=== PATIENT | female | born 1990 | race Caucasian/White ===

== ENCOUNTER 2018-04-24 11:29 | Emergency (ER) | payer MEDICAID ==
[2018-04-24 11:51] VITALS: O2SAT 100
[2018-04-24] MEDS ORDERED: Sodium Chloride 0.9% 1,000 ML IV ONE ×2 (12:02→12:03)
[2018-04-24] MEDS ORDERED: Sodium Chloride 0.9% 2,000 ML ONE (12:25)
[2018-04-24 12:48] LABS: BASO # 0.1 K/uL (0.0-0.2); BASO % 0.6 % (0.0-2.0); EOS # 0.1 K/uL (0.0-0.7); EOS % 0.6 % (0.0-4.0); HEMOGLOBIN 11.5 g/dL (11.0-16.0); LYMPH # 2.9 K/uL (1.0-4.3); LYMPH % 26.5 % (20.0-40.0); MEAN CELL VOLUME 78.5 fL (81.0-99.0); MEAN CORPUSCULAR HEMOGLOBIN 25.8 pg (27.0-31.0); MEAN CORPUSCULAR HGB CONC 32.9 g/dL (33.0-37.0); MEAN PLATELET VOLUME 7.5 fL (7.2-11.7); MONO # 0.7 K/uL (0.0-0.8); MONO % 6.4 % (0.0-10.0); NEUT # 7.3 K/uL (1.8-7.0); NEUT % 65.9 % (50.0-75.0); RBC 4.47 Mil/uL (3.80-5.20); RED CELL DISTRIBUTION WIDTH 13.5 % (11.5-14.5); WHITE BLOOD COUNT 11.1 K/uL (4.8-10.8)
--- NOTE | 2018-04-24 12:55 | C.PDOC ---
History Of Present Illness 28 y/o female, , presents to the ER for evaluation of hyperemesis. Patient states that she has been constantly vomiting. Patient reports that she took Zofran without relief. She notes that she is 14 weeks . She has PMD in [place]. She is looking for PMD in [place] because she is relocating to [place].Denies having fever, chills, dysuria and hematuria. Time Seen by Provider: 04/24/18 11:52 Chief Complaint (Nursing): GI Problem History Per: Seed Tester (tamazight-speaking) History/Exam Limitations: no limitations Onset/Duration Of Symptoms: Days Current Symptoms Are (Timing): Still Present Severity: Moderate Past Medical History Reviewed: Historical Data, Nursing Documentation, Vital Signs Vital Signs: Last Vital Signs Temp 98.2 F 04/24/18 11:35 Pulse 88 04/24/18 11:35 Resp 16 04/24/18 11:35 BP 127/75 04/24/18 11:35 Pulse Ox 100 04/24/18 11:35 - Medical History PMH: No Chronic Diseases Surgical History: No Surg Hx Family History: States: No Known Family Hx - Social History Hx Alcohol Use: No Hx Substance Use: No - Immunization History Hx Tetanus Toxoid Vaccination: No Hx Influenza Vaccination: No Hx Pneumococcal Vaccination: No Review Of Systems Except As Marked, All Systems Reviewed And Found Negative. Constitutional: Negative for: Fever, Chills Gastrointestinal: Positive for: Vomiting. Negative for: Abdominal Pain Genitourinary: Negative for: Dysuria, Hematuria Physical Exam - Physical Exam Appears: Other (actively vomiting) Skin: Normal Color, Warm, Dry Head: Atraumatic, Normacephalic Eye(s): bilateral: Normal Inspection Nose: Normal Oral Mucosa: Moist Neck: Supple Chest: Symmetrical Cardiovascular: Rhythm Regular Respiratory: Normal Breath Sounds, No Rales, No Rhonchi, No Wheezing Gastrointestinal/Abdominal: Normal Exam, Soft, No Tenderness, No Guarding, No Rebound Extremity: Normal ROM Neurological/Psych: Oriented x3, Normal Speech Gait: Steady ED Course And Treatment - Laboratory Results Result Diagrams: 04/24/18 12:44 04/24/18 12:44 O2 Sat by Pulse Oximetry: 100 (RA) Pulse Ox Interpretation: Normal Medical Decision Making Medical Decision Making: Plan: --Labs --UA --Reglan IV --IV Fluids Disposition Counseled Patient/Family Regarding: Studies Performed, Diagnosis, Need For Followup - Disposition Referrals: [facility] [Outside] [facility] [Outside] Disposition: HOME/ ROUTINE Disposition Time: 15:00 Condition: STABLE Additional Instructions: Follow up with your POSTAL CARRIER or clinic for further evaluation Instructions: Hyperemesis Gravidarum Forms: [facility] (Armenian), Gen Discharge Inst Latvian - POA Present On Arrival: None - Clinical Impression Clinical Impression: Hyperemesis arising during - PA / LAWN CARETAKER / Resident Statement MD/DO has reviewed & agrees with the documentation as recorded. - Scribe Statement The provider has reviewed the documentation as recorded by the George Chen Provider Attestation All medical record entries made by the Moraibpetra were at my direction and personally dictated by me. I have reviewed the chart and agree that the record accurately reflects my personal performance of the history, physical exam, medical decision making, and the department course for this patient. I have also personally directed, reviewed, and agree with the discharge instructions and disposition.
[2018-04-24 12:58] LABS: SQUAMOUS EPITHIAL 3 /hpf (0-5); URINE AMORPHOUS SEDIMENT RARE /ul (<OCC); URINE BILIRUBIN NEGATIVE (NEGATIVE); URINE BLOOD NEGATIVE (NEGATIVE); URINE CLARITY Hazy (Clear); URINE COLOR Yellow (YELLOW); URINE GLUCOSE (UA) NORMAL (Normal); URINE LEUKOCYTE ESTERASE NEG Leu/uL (Negative); URINE PROTEIN NEGATIVE (NEGATIVE); URINE UROBILINOGEN NORMAL mg/dL (0.2-1.0)
[2018-04-24 13:05] LABS: ALB/GLOB RATIO 1.3 (1.0-2.1); ALT/SGPT 25 U/L (9-52); AST/SGOT 16 U/L (14-36); BLOOD UREA NITROGEN 5 mg/dL (7-17); CALCIUM 9.3 mg/dl (8.6-10.4); GFR NON-AFRICAN AMERICAN > 60; LIPASE 56 U/L (23-300)
[2018-04-24 14:24] VITALS: BP 102/66; PULSE 79; RESP 18; TEMP 98
== END 2018-04-24 15:19 | disposition home or self-care (01) ==
LOC: C.ER 11:29
DX: O21.0 Mild hyperemesis gravidarum (principal); Z3A.14 14 weeks gestation of pregnancy
CPT/HCPCS: 80053; 81001; 83690; 85025; 96361; 96374; 99285; J2765; J7030

== ENCOUNTER 2018-10-09 22:10 | Emergency (ER) | payer MEDICAID, OTHER | END 2018-10-09 23:55 | disposition home or self-care (01) | LOC: C.EROB 23:55 ==

== ENCOUNTER 2018-10-17 08:17 | Inpatient (IN) | payer OTHER ==
[2018-10-17 20:37] VITALS: BMI 38.7
[2018-10-17] MEDS ORDERED: Oxytocin 30 UNIT in NS 500 ml 30 UNITS/500 ML BAG IV ONE (21:39)
[2018-10-17] MEDS ORDERED: Lactated Ringer's 1,000 ML IV ONE (21:39)
[2018-10-17] MEDS ORDERED: Lactated Ringer's 1,000 ML IV SCH (21:45)
[2018-10-17 23:00] LABS: BASO # 0.1 K/uL (0.0-0.2); BASO % 1.1 % (0.0-2.0); EOS # 0.1 K/uL (0.0-0.7); EOS % 0.7 % (0.0-4.0); HEMOGLOBIN 11.5 g/dL (11.0-16.0); LYMPH # 2.3 K/uL (1.0-4.3); MEAN CELL VOLUME 77.7 fL (81.0-99.0); MEAN CORPUSCULAR HEMOGLOBIN 26.3 pg (27.0-31.0); MEAN CORPUSCULAR HGB CONC 33.8 g/dL (33.0-37.0); MEAN PLATELET VOLUME 9.5 fL (7.2-11.7); MONO % 9.7 % (0.0-10.0); NEUT # 6.6 K/uL (1.8-7.0); NEUT % 65.5 % (50.0-75.0); NRBC % 0.1 % (0.0-2.0); RBC 4.39 Mil/uL (3.80-5.20); RED CELL DISTRIBUTION WIDTH 15.8 % (11.5-14.5)
[2018-10-17 23:07] LABS: ALB/GLOB RATIO 1.2 (1.0-2.1); ALBUMIN 3.3 g/dL (3.5-5.0); ALT/SGPT 15 U/L (9-52); AST/SGOT 20 U/L (14-36); BLOOD UREA NITROGEN 9 mg/dL (7-17); CALCIUM 8.9 mg/dl (8.6-10.4); GFR NON-AFRICAN AMERICAN > 60
[2018-10-17 23:37] LABS: HEPATITIS B SURFACE AG Negative (NEGATIVE)
[2018-10-18] MEDS ORDERED: Nalbuphine HCL 10 mg/ml Ampule IVP ONE (06:09)
[2018-10-18] MEDS ORDERED: Bupivacaine HCl 0.5% PF (10 ml) Inj ONE (07:42)
[2018-10-18] MEDS ORDERED: Bupivacaine HCl/FentaNYL Cit 100 ML EPI ONE (08:24)
[2018-10-18] MEDS ORDERED: Oxytocin 30 UNIT in NS 500 ml 30 UNITS/500 ML BAG IV ONE (13:00)
[2018-10-18] MEDS ORDERED: Oxytocin 10 Units/ml Inj ONE ×2 (15:48→20:58)
[2018-10-18] MEDS ORDERED: OXYTOCIN IV SCH (16:30)
[2018-10-18] MEDS ORDERED: LR IV SCH (16:30)
[2018-10-18] MEDS ORDERED: Oxycodone/Acetaminophen 5/325 mg Tab PO PRN (18:45)
[2018-10-19 06:44] LABS: BASO # 0.1 K/uL (0.0-0.2); EOS # 0.1 K/uL (0.0-0.7); EOS % 0.7 % (0.0-4.0); HEMOGLOBIN 10.2 g/dL (11.0-16.0); LYMPH # 2.4 K/uL (1.0-4.3); LYMPH % 17.8 % (20.0-40.0); MEAN CORPUSCULAR HEMOGLOBIN 26.4 pg (27.0-31.0); MEAN CORPUSCULAR HGB CONC 33.4 g/dL (33.0-37.0); MEAN PLATELET VOLUME 8.7 fL (7.2-11.7); MONO # 1.2 K/uL (0.0-0.8); MONO % 8.6 % (0.0-10.0); NEUT # 9.8 K/uL (1.8-7.0); NEUT % 71.9 % (50.0-75.0); RBC 3.85 Mil/uL (3.80-5.20); RED CELL DISTRIBUTION WIDTH 16.1 % (11.5-14.5); WHITE BLOOD COUNT 13.7 K/uL (4.8-10.8)
[2018-10-19] MEDS: Multiple Vitamins Tab PO SCH (09:26)
--- NOTE | 2018-10-19 12:53 | OBPPN ---
Datetime: 10/19/2018 12:49 PP Pain Prov: Within normal limits PP Nausea Prov: Denies PP Flatus Prov: Yes PP BM Prov: No PP Breasts Prov: Normal PP Heart Prov: Normal PP Lungs Prov: Normal PP Abdomen/Uterus Prov: Normal PP Lochia Prov: Normal PP Vulva/Perineum Prov: Normal PP CVA Tenderness Prov: Normal PP Extremities Prov: Normal PP Comments Phys Exam Prov: FUNDUS FIRM AT UMBILICUS PP Impression Prov: Normal progression PP Plan Prov: Continue present management PP Progress Note Prov: DOING WELL. NO COMPLAINTS. VSS: AFEBRILE HGBS: 10.2 EXT: SLIGHT EDEMA A/P PPD 1 ) VSS; AFEBRILE 2) ANEMIA: CONTINUE IRON 3) JOSELINE PO DIET. 4) ENCOURAGED AMBULATION 5) ROUTINE: PP CARE. IP PP Procedures: None
[2018-10-20 08:09] VITALS: BP 128/79; PULSE 65; RESP 18; TEMP 97.3
--- NOTE | 2018-10-20 08:58 | OBPPN ---
Datetime: 10/20/2018 08:56 PP Pain Prov: Within normal limits PP Lochia Prov: Normal PP Impression Prov: Normal progression PP Plan Prov: Discharge PP Progress Note Prov: A/P: s/p PPD #2 - stable, afebrile - + breast/bottle - no issues - d/c home IP PP Procedures: None Vital Signs Provider PP: Reviewed; Within Normal Limits
--- NOTE | 2018-10-20 09:00 | OBDCSUM ---
Datetime: 10/20/2018 08:58 Follow up at, Provider: clinic Disch Instr Activity: Normal activity Disch Instr Diet: Regular Discharge Instructions, Provider: Routine instructions given Discharge Diagnosis, Provider: Term Delivered Discharge Time: 10/20/2018 08:58 Follow up in weeks, Provider: 6 weeks Datetime: 10/09/2018 23:40 Discharge Time: 10/20/2018 10:00 Follow up in weeks, Provider: 6 weeks Disch Activity Restrictions: No exercising; No lifting; No driving; Minimize walking; Minimize stair -climbing; No sexual activity; Nothing in vagina - [place], tampons, douche
[2018-10-20] MEDS: Multiple Vitamins Tab PO SCH (10:09)
[2018-10-20 15:37] VITALS: O2SAT 97
--- NOTE | 2018-10-22 22:58 | OBADHP ---
Datetime: 10/17/2018 19:30 Admit Comment, IP Provider: FabianF Anne with SAMUEL 10/18 based on LMP of 01/11/18, presents for schedule d induction of labor. She was previously seen at [facility] on 10/09 due to onset of contractions . She was found to be dilated 1cm, and was discharged home. At this time she reports cramping, and co ntractions. She reports normal movement and denies vaginal bleeding or loss of fluid. She repor ts urinary frequency of every 1-2hrs, and drinks 3-4 glasses of water and juice a day. At this time, she denies any fever, chills, SOB, nausea, vomiting, constipation, diarrhea, or pain with urination. OB Hx: , care with Dr. 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 Hx: Menarche at 7y.o, regular interval, duration 4-5d Denies history of STI, denies history of fibroids or abnormal pap smears Reports history of ruptured cyst in 2012 PMH: migraines PSH: denies All: NKDA Meds: vitamins + iron Fam Hx: mother - HTN, father - healthy Social Hx: denies s/a/d during , admits to occasional alcohol use and Hookah prior to pre gnancy Physical Exam Gen: NAD Heart: normal s1 s2, RRR, no murmurs Lung: CTA bilateral, no wheezes/rhonchi/rales Abdomen: nontender Extr: no swelling or tenderness Assessment/Plan 28F with SAMUEL 10/18 based on LMP of 01/11/18, presenting for scheduled induction of labor. NST reactive -IVF lactated ringers -Cervidil -Pitocin -monitor frequency of contractions -monitor for ROM Anticipate Vaginal Delivery Pelvic Type - PN: Adequate Extremities - PN: Normal Abdomen - PN: Normal Back - PN: Normal Breast - PN: Not Done Lungs - PN: Normal Heart - PN: Normal Thyroid - PN: Normal Neurologic - PN: Normal HEENT - PN: Normal General - PN: Normal Presentation-Admit: Vertex Membranes, Provider: Intact Contraction Comments Provider: Irregular Gestation - Est Wks by US: 40.0 IP Hx Assessment: The History has been Reviewed and is Current Vital Signs Provider: Reviewed; Within Normal Limits IP Chief Complaint: Scheduled induction of labor FHR Category Provider Fetus A: Category I NICHD Decel Fetus A IP Provider: None Dilatation, Provider: 1 Effacement, Provider: 50 Station, Provider: -3 Genitourinary Exam: Normal DTRs - PN: Normal EGA AdmitDate IP: 39.6 IP Adm Impression: Postterm, intrauterine ; No Active Labor; Intact Membranes IP Admit Plan: Initiate labor induction protocol Datetime: 10/09/2018 23:40 FHR - Baseline A Provider: 150 Comments, ACOG Physical Exam: ctx q8 sve: 06/19-3 NICHD Variability Prov Fetus A: Moderate 6-25bpm NICHD Accel Fetus A IP Provider: [id number]
--- NOTE | 2018-10-22 23:07 | OBDS ---
DELIVERY PERSONNEL Delivery Doctor: Gage Delong DO Scrub Nurse: Mita Guy Notching Press Operator: Karolina Gomes RN Anesthesiologist: MD Kyle MATERNAL INFORMATION Delivery Anesthesia: Epidural Medications in Delivery: Pitocin 40 unit in 1000ml LR, Methergine0.2 mg im Estimated Blood Loss (ml): 400 Maternal Complications: None RN Comments: to a live baby Girl to mother bare skin attended to by Rancho Serna RN, 9:9, stable. Provider Comments: This is a 28 year old female now [id number] a viable F via over intact perineum and from on 10/18/18 @ 1523 PM. mniotic fluid was clear. Pt had been ruptured since 1 307. The 's head was delivered in a controlled manner. No nuchal cord was noted. The infants mo uth and nose wassuctioned with a bulb syringe. The infants body was delivered without difficulty. The cord was clamped and cut. The was placed on mom's belly. Cord blood and cord gases were colle cted and sent to the lab. An intact placenta with a 3VC was delivered with IV pitocin infusion EBL of 400 ml 2/2 mild uteriene atony that reuired increase Pitocin infusion and one dose of Methe rgine IM. The weighed 7 lbs 12 oz with APGARS of 9 and 9. Mom and baby are recovering in stable condition. All instrument and sponge counts were correct X 2. Dr. Delong, Dr. Martinez PGY1, and OSM3s Enrique Green Lipat assisted in delivery. LABOR SUMMARY EDC: 10/18/2018 00:00 No. Babies in Womb: 1 Attempted: No Labor Anesthesia: Epidural LABOR INFORMATION Onset of Labor: 10/18/2018 09:00 Complete Dilatation: 10/18/2018 15:10 Cervical Ripening Agents: Cervidil; Cytotec @ Group B Beta Strep: Negative MEMBRANES Membranes Rupture Method: Spontaneous Rupture of Membranes: 10/18/2018 13:07 Length of Rupture (hrs): 2.27 Amniotic Fluid Color: Clear Amniotic Fluid Amount: Moderate Amniotic Fluid Odor: Normal STAGES OF LABOR Stage 1 hrs: 6 Stage 1 min: 10 Stage 2 hrs: 0 Stage 2 min: 13 Stage 3 hrs: 0 Stage 3 min: 5 Total Time in Labor hrs: 6 Total Time in Labor min: 28 VAGINAL DELIVERY Episiotomy: None Laceration Extension: N/A Laceration Type: None Laceration Repair: Not Applicable Initial Vag Sponge Count: 10 Final Vag Sponge Count: 10 Initial Vag Sharps Count: 0 Final Vag Sharps Count: 0 Sharps Count Correct: Yes BABY A INFORMATION Infant Delivery Date/Time: 10/18/2018 15:23 Method of Delivery: Vaginal Born in Route : No : N/A Forceps: N/A Vacuum Extraction: N/A Shoulder Dystocia : No SHOULDER DYSTOCIA BABY A Delivery Date/Time: 10/18/2018 15:23 PRESENTATION/POSITION BABY A Presentation: Cephalic Cephalic Presentation: Face Vertex Position: Right Occipital Posterior Breech Presentation: N/A PLACENTA INFORMATION BABY A Placenta Delivery Time : 10/18/2018 15:28 Placenta Method of Delivery: Spontaneous Placenta Status: Delivered SCORES BABY A Heart Rate 1 min: >100 bpm Resp Effort 1 min: Good Cry Reflex Irritability 1 min: Cough or Sneeze or Pulls Away Muscle Tone 1 min: Active Motion Color 1 min: Body [place], Extremities Blue SCORE 1 MIN: 9 Heart Rate 5 min: >100 bpm Resp Effort 5 min: Good Cry Reflex Irritability 5 min: Cough or Sneeze or Pulls Away Muscle Tone 5 min: Active Motion Color 5 min: Body [place], Extremities Blue SCORE 5 MIN: 9 INFORMATION BABY A Gestational Age at Delivery: 40.0 Gestational Status: Term Outcome : Liveborn Infant Condition : Stable Sex: Female IDENTIFICATION/MEDS BABY A ID Band Number: [id number] ID Band Location: Left Leg; Left Arm Sensor Applied: Yes Sensor Number: [id number] Sensor Location : Cord Clamp WEIGHT/LENGTH BABY A Infant Birthweight (gms): 3550 Infant Weight (lb): 7 Weight (oz): 13 Length Inches: 20.00 Length cms: 50.8 CORD INFORMATION BABY A No. Cord Vessels: 3 Nuchal Cord : N/A Nuchal Cord Other: shoulder x 1 True Knot: 0 Cord Blood Taken: Yes Infant Suction: Mouth; Nose ASSESSMENT BABY A Complications: None Physical Findings at Delivery: Within Normal Limits Respirations: Appears Normal Thread Winder/ALS Called : No Care By: Rancho Dunn Transferred To: Remains with Mother
== END 2018-10-20 11:00 | disposition home or self-care (01) | DRG 373 ==
LOC: C.4D 19:09 → UNDOADMIN 19:09 → C.4D 19:22 → C.4M 10-18 19:50
PROVIDERS: ADMIT Obstetrics & Gynecology; ATTEND Obstetrics & Gynecology
PROC: 10E0XZZ Delivery of Products of Conception, External Approach (ICD-10-PCS; principal; 2018-10-18)
PROC: 3E0P7VZ Introduction of Hormone into Female Reproductive, Via Natural or Artificial Opening (ICD-10-PCS; 2018-10-18)
DX: O99.02 Anemia complicating childbirth (principal); D64.9 Anemia, unspecified; Z3A.40 40 weeks gestation of pregnancy; Z37.0 Single live birth